=== PATIENT | male | born 1985 | race Caucasian/White ===

== ENCOUNTER 2023-08-25 11:26 | Day surgery (SDC) | payer BC ==
[2023-08-16 16:18] VITALS: BMI 39.9
[2023-08-25 13:12] VITALS: RESP 19; TEMP 97.9
[2023-08-25 13:14] VITALS: BP 115/65; PULSE 70
== END 2023-08-25 13:05 | disposition home or self-care (01) ==
LOC: FASU-ENDO 11:26
PROVIDERS: ATTEND Internal Medicine Gastroenterology
PROC: 0DB68ZX Excision of Stomach, Via Natural or Artificial Opening Endoscopic, Diagnostic (ICD-10-PCS; 2023-08-25)
PROC: 0DB48ZX Excision of Esophagogastric Junction, Via Natural or Artificial Opening Endoscopic, Diagnostic (ICD-10-PCS; 2023-08-25)
PROC: 0DB98ZX Excision of Duodenum, Via Natural or Artificial Opening Endoscopic, Diagnostic (ICD-10-PCS; principal; 2023-08-25 12:26)
DX: K20.90 Esophagitis, unspecified without bleeding (principal); R10.13 Epigastric pain
CPT/HCPCS: 88305-TC; 88342-TC